=== PATIENT | female | born 1970 | race Two or more races ===

== ENCOUNTER 2021-12-28 16:07 | Outpatient (CLI) | payer OTHER ==
[~2021-12-28 16:07] MED LIST: FIORICET 50-301 EACH PO; LIPITOR20 MG; MILLIPRED DP5 M1 PO
== END 2021-12-28 16:08 | disposition home or self-care (01) ==
LOC: SONOGRAMA 16:07
PROVIDERS: ATTEND Pathology Anatomic Pathology & Clinical Pathology
DX: E04.2 Nontoxic multinodular goiter (principal)

== ENCOUNTER 2024-10-28 12:00 | Emergency (ER) | payer OTHER ==
[~2024-10-28] VITALS: Ht 167.6 cm; Wt 95.3 kg
[2024-10-28] MEDS ORDERED: LOSARTAN POTAS100 MG (12:22)
[2024-10-28] MEDS ORDERED: DEXAMETHASONE SODIUM PHOSPHATE 4 MG/ML VIAL ONE ×2 (14:28→14:59)
[2024-10-28] MEDS ORDERED: ACETAMINOPHEN 500 MG GEL..CAP PO ONE ×2 (14:28→14:30)
[2024-10-28] MEDS ORDERED: ORPHENADRINE CITRATE 30 MG/ML AMPUL ONE (14:28)
[2024-10-28] MEDS ORDERED: ORPHENADRINE CITRATE 30 MG/ML AMPUL IM ONE (14:30)
[2024-10-28] MEDS ORDERED: DEXAMETHASONE SODIUM PHOSPHATE 4 MG/ML VIAL IM ONE (14:30)
[2024-10-28] MEDS ORDERED: BACLOFEN10 MG PO (16:13)
[2024-10-28] MEDS ORDERED: TYLENOL ARTHRI650 MG PO (16:13)
== END 2024-10-28 16:26 ==
LOC: ER 12:03
DX: M54.50 Low back pain, unspecified (principal); Z88.6 Allergy status to analgesic agent; I10 Essential (primary) hypertension